=== PATIENT | male | born 1960 | race Caucasian/White ===

== ENCOUNTER → 2017-08-01 | Outpatient (REF) ==
--- NOTE | 2017-08-01 14:56 | REP ---
Lumbar spine three views: Comparison 04/25/2013. Vertebral body heights and alignment are normal. There is mild to moderate degenerative disc disease throughout the lumbar spine, unchanged. There is no spondylolysis or spondylolisthesis. There are bridging osteophytes along the right lateral margins L 12/16 L3-4, unchanged. The pedicles, facets and sacroiliac articulations are unremarkable. Impression: Multilevel mild to moderate degenerative disc disease. No interval change. Sign taking Signed by Rafael Floyd MD 08/01/2017 02:48 P
== END ==
LOC: M SMT 14:02
PROVIDERS: ATTEND Internal Medicine
DX: M54.5 Low back pain (principal)

== ENCOUNTER → 2021-05-19 | Outpatient (CLI) | payer OTHER ==
--- NOTE | 2021-05-20 16:20 | SLEEPCENT ---
DATE: 05/19/2021 ORDERED BY: Khalif Alva MD Nocturnal polysomnography was performed for evaluation of sleep physiology. Eight hours and 28 minutes of data were reviewed. There were 378.5 minutes of sleep identified. Sleep latency was mildly prolonged at 30.5 minutes. REM latency was within normal range at 101 minutes. Sleep architecture was fairly well preserved with some minor fragmentation, particularly early in the study but four REM cycles were noted. Overall sleep efficiency was 75.2%. The electrocardiogram showed an underlying sinus rhythm with an average heart rate of 60 beats per minute. Rate ranged 50 to 80. EEG showed reasonably normal waveforms for wake and sleep stages. There were 46 respiratory events identified of 10 seconds in duration or greater for an apnea-hypopnea index of 7.3. The events were obstructive, not exclusive to sleep stage, and not exclusive to sleep position. Arousals from respiratory events occurred 2.4 times per hour and oxygen desaturations were seen into the 80s. There was some minor limb activity noted. One train of 30 events was seen. The limb movement arousal index was 6.2. IMPRESSION: 1. Obstructive sleep apnea syndrome (G47.33). 2. Apnea-hypopnea index 7.3. RECOMMENDATION: The patient should be encouraged to return to [facility] for [facility]. In the interim, alcohol and sedative avoidance should be practiced and caution exercised during the operation of motor vehicles.
== END ==
LOC: M SLEEP 20:00
PROVIDERS: ATTEND Internal Medicine
DX: G47.33 Obstructive sleep apnea (adult) (pediatric) (principal)

== ENCOUNTER 2021-11-28 10:54 | Observation (INO) | payer OTHER ==
[~2021-11-28] VITALS: Ht 182.9 cm; Wt 107.9 kg
[~2021-11-28 10:54] MED LIST: ASPI81CH33 PO; D200CAP2 PO; D3-5CAP PO; EZETIMIBE 10MG TABLET (ZETIA) PO SCH; IBUP200T46 PO; METF-839 PO; PRED10TA2 PO; ROSUVASTATIN 10 MG TAB (CRESTOR) PO SCH; allopurinoL 100 MG TAB PO SCH; predniSONE 10 MG TAB PO SCH
[2021-11-28 11:42] LABS: BASO # 0.1 10^3/uL (0.0-0.2); BASO % 0.9 % (0.0-1.0); EOS # 0.1 10^3/uL (0.0-0.5); EOS % 0.5 % (0.0-3.0); HEMATOCRIT 43.7 % (42.0-52.0); HEMOGLOBIN 14.4 g/dl (13.5-17.5); LYMPH # 2.4 10^3/uL (1.5-5.0); LYMPH % 18.1 % (24.0-44.0); MEAN CORPUSCULAR HEMOGLOBIN 29.8 pg (27.0-33.0); MEAN CORPUSCULAR VOLUME 90.5 fl (80.0-96.0); MONO # 1.2 10^3/uL (0.0-0.8); MONO % 8.9 % (2.0-8.0); NEUTROPHILS # 9.1 10^3/uL (1.5-8.5); NEUTROPHILS % 68.1 % (36.0-66.0); PLATELET COUNT, AUTOMATED 418 10^3/uL (150-450); RED BLOOD COUNT 4.83 10^6/uL (4.30-6.10); WHITE BLOOD COUNT 13.3 10^3/uL (4.0-10.0)
[2021-11-28 12:08] LABS: CK-MB VALUE MASS < 1.0 NG/ML (<3.6); CPK CREATINE PHOSPHOKINASE 41 U/L (39-308); MB/CK RELATIVE INDEX 2.44 (< OR =4)
[2021-11-28 12:16] LABS: ALBUMIN 2.7 GM/DL (3.2-5.2); ALT/SGPT 157 U/L (12-78); BILIRUBIN,DIRECT 0.2 MG/DL (0.0-0.2); BILIRUBIN,TOTAL 0.4 MG/DL (0.2-1.0); BLOOD UREA NITROGEN 17 MG/DL (7-18); CALCIUM LEVEL 9.1 MG/DL (8.8-10.2); CARBON DIOXIDE LEVEL 32 MEQ/L (21-32); CHLORIDE LEVEL 100 MEQ/L (98-107); CREATININE FOR GFR 0.76 MG/DL (0.70-1.30); GLOMERULAR FILTRATION RATE > 60.0 (>49); GLUCOSE, FASTING 118 MG/DL (70-100); NT-PRO BNP 86 PG/ML (<125); POTASSIUM SERUM 4.6 MEQ/L (3.5-5.1); SODIUM LEVEL 137 MEQ/L (136-145); TOTAL PROTEIN 6.1 GM/DL (6.4-8.2)
[2021-11-28] MEDS ORDERED: ACETAMINOPHEN TAB 650MG DOSE (2X325MG) PO PRN (13:10)
[2021-11-28] MEDS ORDERED: GLUCOSE 4GM CHEW TABLET PO PRN (13:10)
[2021-11-28] MEDS ORDERED: DEXTROSE 50% 50 ML SYRINGE IV PRN (13:10)
[2021-11-28] MEDS ORDERED: GLUCAGON INJ 1MG VIAL SC PRN (13:10)
[2021-11-28] MEDS ORDERED: PRED10TA2 PO (13:47)
[2021-11-28] MEDS ORDERED: CELE1CAP4 PO (13:47)
[2021-11-28] MEDS ORDERED: ALLO100T PO (13:47)
[2021-11-28] MEDS ORDERED: ZETI10TA16 PO (13:47)
[2021-11-28] MEDS ORDERED: ROSU40TA4 PO (13:47)
[2021-11-28] MEDS ORDERED: HOME MED LIST COMPLETE! XX SCH (14:35)
[2021-11-28] MEDS ORDERED: IBUPROFEN 400MG TAB PO PRN (16:05)
[2021-11-28] MEDS ORDERED: HumaLOG INSULIN (NovoLOG) PER UNIT SC SCH ×2 (17:30→21:00)
[2021-11-28 18:15] VITALS: BP 157/74
[2021-11-28] MEDS ORDERED: CelecoXIB (CeleBREX) 100 MG CAP PO SCH (21:00)
[2021-11-29] MEDS ORDERED: ASPIRIN 81 MG CHEW TABLET PO SCH (09:00)
[2021-11-29] MEDS ORDERED: ENOXAPARIN 40MG/0.4ML SYRINGE (J1650 PER 10MG) SC SCH (09:00)
== END 2021-11-28 19:20 | disposition left against medical advice (07) ==
LOC: M ED 10:54 → M ED INP 13:09 → ENRESERV 19:08
PROVIDERS: ADMIT Family Medicine; ATTEND Family Medicine
DX: G45.9 Transient cerebral ischemic attack, unspecified (principal); U07.1 COVID-19; E11.9 Type 2 diabetes mellitus without complications; Z99.81 Dependence on supplemental oxygen; R06.02 Shortness of breath; R20.0 Anesthesia of skin; R07.89 Other chest pain; Z79.899 Other long term (current) drug therapy; Z79.82 Long term (current) use of aspirin; Z79.84 Long term (current) use of oral hypoglycemic drugs; Z79.52 Long term (current) use of systemic steroids; Z88.8 Allergy status to other drugs, medicaments and biological substances
CPT/HCPCS: 70450; 70544; 70551; 71045; 80048; 80076; 82550; 82553; 83880; 84443; 84484; 85025; 93005; 93041; 94760; 99285; G0378; J7512

== ENCOUNTER 2022-04-06 12:27 | Emergency (ER) | payer OTHER ==
[~2022-04-06] VITALS: Ht 182.9 cm; Wt 116.2 kg
[~2022-04-06 12:27] MED LIST changes: +ALLO100T PO; +CELE1CAP4 PO; -EZETIMIBE 10MG TABLET (ZETIA) PO SCH; +ROSU40TA4 PO; -ROSUVASTATIN 10 MG TAB (CRESTOR) PO SCH; +ZETI10TA16 PO; -allopurinoL 100 MG TAB PO SCH; -predniSONE 10 MG TAB PO SCH
[2022-04-06 12:29] VITALS: BP 150/81
== END 2022-04-06 19:38 | disposition home or self-care (01) ==
LOC: M ED 12:27
DX: S50.11XA Contusion of right forearm, initial encounter (principal); X58.XXXA Exposure to other specified factors, initial encounter; Y92.9 Unspecified place or not applicable; Y93.9 Activity, unspecified; Y99.9 Unspecified external cause status; E11.9 Type 2 diabetes mellitus without complications; J44.9 Chronic obstructive pulmonary disease, unspecified; E78.5 Hyperlipidemia, unspecified; F41.9 Anxiety disorder, unspecified; G43.909 Migraine, unspecified, not intractable, without status migrainosus; M54.9 Dorsalgia, unspecified; Z79.82 Long term (current) use of aspirin; Z79.899 Other long term (current) drug therapy

== ENCOUNTER → 2023-01-28 | Outpatient (CLI) | payer OTHER | LOC: M RAD 12:09 | PROVIDERS: ATTEND Internal Medicine | DX: M23.042 Cystic meniscus, anterior horn of lateral meniscus, left knee (principal); M65.811 Other synovitis and tenosynovitis, right shoulder ==

== ENCOUNTER → 2023-04-17 | Outpatient (CLI) | payer OTHER | LOC: M SOG 07:58 | PROVIDERS: ATTEND Orthopaedic Surgery | DX: M25.562 Pain in left knee (principal) ==

== ENCOUNTER → 2023-08-23 | Outpatient (CLI) | payer OTHER ==
[~2023-08-23] MED LIST changes: +EZET10TA58 PO; -ZETI10TA16 PO
== END ==
LOC: M SOG 07:51
PROVIDERS: ATTEND Orthopaedic Surgery
DX: M25.562 Pain in left knee (principal); M25.561 Pain in right knee; M25.511 Pain in right shoulder

== ENCOUNTER → 2024-12-31 | Outpatient (CLI) | payer OTHER ==
[~2024-12-31] MED LIST changes: -ROSU40TA4 PO; +ROSU40TA81 PO
== END ==
LOC: M RAD 08:23
PROVIDERS: ATTEND Physician Assistant
DX: M75.51 Bursitis of right shoulder (principal)